=== PATIENT | female | born 1980 | race Caucasian/White ===

== ENCOUNTER → 2018-02-03 10:30 | Outpatient (CLI) | payer OTHER, SELFPAY ==
[2018-02-06 10:20] LABS: HPV Reflexed? NOT INDICATED
== END ==
PROVIDERS: Visit Provider Obstetrics & Gynecology
DX: Z12.4 Encounter for screening for malignant neoplasm of cervix (principal)
CPT/HCPCS: 88175; G0145

== ENCOUNTER → 2020-02-02 | Outpatient (CLI) | payer OTHER, SELFPAY ==
[2020-02-08 09:20] LABS: HPV Reflexed? NOT INDICATED
== END | disposition home or self-care (01) ==
LOC: LABSPEC 14:22
PROVIDERS: Visit Provider Obstetrics & Gynecology
DX: Z12.4 Encounter for screening for malignant neoplasm of cervix (principal)
CPT/HCPCS: 88175; G0145

== ENCOUNTER → 2025-02-21 | Outpatient (CLI) | payer OTHER, SELFPAY ==
--- NOTE | 2025-02-21 14:23 | BI_ITS ---
EXAM: SCRN MAMM (CAD)W/KIANA BILAT DATE: 02/21/2025 CLINICAL HISTORY: F, Age 44 y/o , SCREENING TECHNIQUE: Procedure Code: [id number] Modality: MG Procedure: SCRN MAMM (CAD)W/KIANA BILAT COMPARISON: Prior exam(s) were compared FINDINGS: TISSUE DENSITY: There are scattered areas of fibroglandular density. Bilateral Breast Mammographic Findings: No suspicious masses, calcifications or other abnormalities are identified. BI/SCRN MAMM (CAD)W/KIANA BILAT IMPRESSION: No mammographic evidence of malignancy in either breast. OVERALL FINAL ASSESSMENT BI-RADS 1: NEGATIVE. RECOMMENDATION: Routine annual follow-up in 1 Year Additional Recommendation none A letter with findings and recommendations will be mailed to the patient. Reading Location: [id number]
--- OUTSIDE RECORDS SUMMARY | 2025-02-21 14:58 | XMS RPT_ITS | CCD ---
Author Organization [facility] CliniSyvt Care Team Providers Care Toll Repairer Central Office Name Role Phone RADHA MAY Admitting Unavailable YADIRA RADHA Attending Unavailable YADIRA RADHA Primary Care Unavailable NUZHAT BARRIOS MD Consulting Unavailable PROVIDER, UNKNOWN Consulting Unavailable PROVIDER, UNKNOWN Consulting Unavailable PROVIDER, UNKNOWN Consulting Unavailable DAY KRAUSE Admitting Unavailable TIANNA KRAUSEA Attending Unavailable NELIDA, DAY Primary Care Unavailable NUZHAT BARRIOS MD Consulting Unavailable PROVIDER, UNKNOWN Consulting Unavailable PROVIDER, UNKNOWN Consulting Unavailable PROVIDER, UNKNOWN Consulting Unavailable SORENSEN PAC~[id number], SROENSEN DIEGO A Attending Unavailable SORENSEN PAC~[id number], SORENSEN DIEGO A Admitting Unavailable NELIDA SUPERVISOR ALUM PLANT-C, DAY K Consulting Unavailable NELIDA SUPERVISOR [employer]UM [employer]-C~[id number], NELIDA DAY K Primary Car e Unavailable NELIDA SUPERVISOR [employer]UM [employer]-C, DAY K Consulting Unavailable SORENSEN PAC, DIEGO A Consulting Unavailable SORENSEN PAC~[id number], SORENSEN DIEGO A Admitting Unavailable SORENSEN PAC~[id number], SORENSEN DIEGO A Attending Unavailable NELIDA SUPERVISOR [employer]UM PL[employer]-C~[id number], NELIDA DAY K Primary Car e Unavailable SORENSEN PAC, DIEGO A Consulting Unavailable NELIDA SUPERVISOR [employer]UM PLANT-C, DAY K Consulting Unavailable NELIDA SUPERVISOR [employer]UM [employer]-C, DAY K Consulting Unavailable JUAN CARLOS DO, DORINDA T Consulting Unavailable JUAN CARLOS DO, DORINDA T Consulting Unavailable SORENSEN PAC, DIEGO A Consulting Unavailable SORENSEN PAC~[id number], SORENSEN DIEGO A Admitting Unavailable SORENSEN PAC~[id number], SORENSEN DIEGO A Attending Unavailable NELIDA SUPERVISOR [employer]UM [employer]-C~[id number], NELIDA DAY K Primary Car e Unavailable SORENSEN PAC, DIEGO A Consulting Unavailable NELIDA SUPERVISOR [employer]UM [employer]-C, DAY K Consulting Unavailable NELIDA SUPERVISOR [employer]UM [employer]-C, DAY K Consulting Unavailable ISIDRO DO, INGA Consulting Unavailable ISIDRO DO, INGA Consulting Unavailable APARNA DO~[id number], APARNA Campos Admitting Unavailable WHEELER PAC, JOANNE Ambrocio Consulting Unavailable NELIDA SUPERVISOR [employer]-C~[id number], NELIDA Auguste Primary Car e Unavailable APARNA DO~[id number], APARNA HANSEN J Attending Unavailable WHEELER PAC, JOANNE Ambrocio Consulting Unavailable ELLA PÉREZ, MOR Consulting Unavailable ELLA PÉREZ, MOR Consulting Unavailable NELIDA SUPERVISOR [employer]-C, DAY Auguste Consulting Unavailable NELIDA SUPERVISOR [employer]-C, DAY Auguste Consulting Unavailable APARNA DOJADE Consulting Unavailable APARNA DO, JADE J Consulting Unavailable MARLEY PÉREZ, YONNY Song Consulting Unavailable MARLEY PÉREZ~[id number], MARLEY Song Admitting Unavailable MARLEY PÉREZ~[id number], MARLEY Song Attending Unavailable NELIDA SUPERVISOR [employer]-C~[id number], NELIDA WYNNA K Primary Car e Unavailable MARLEY PÉREZ, YONNY Song Consulting Unavailable CHRISSY PÉREZ, OSWALDO Pineda Consulting Unavailsukumar LOWE MD, OSWALDO Pineda Consulting UnavailDAY Wolff Consulting Unavailable NELIDA SUPERVISOR [employer]-C, DAY Auguste Consulting Unavailable SORENSEN PAC, DIEGO A Consulting Unavailable SORENSEN PAC~[id number], SORENSEN DIEGO A Attending Unavailable SORENSEN PAC~[id number], SORENSEN DIEGO A Admitting Unavailable NELIDA SUPERVISOR [employer]-C~[id number], NELIDA WYNNA K Primary Car e Unavailable SORENSEN PAC, DIEGO A Consulting Unavailable NONE, NONE Consulting Unavailable NURSEREFERRAL, NURSEREFERRAL Consulting Tamy vailable TIANNA KRAUSEA K Admitting Unavailable DAY KRAUSE K Attending Unavailable TIANNA KRAUSEA K Consulting Unavailable NELIDA SUPERVISOR [employer]-C~[id number], NELIDA WYNNA K Primary Car e Unavailable NELIDA SUPERVISOR [employer], DAY K Consulting Unavailable NONE, NONE Consulting Unavailable NURSEREFERRAL, NURSEREFERRAL Consulting Tamy vailable SANKET PÉREZ~[id number], SANKET Leon Admitting Unavailable SANKET PÉREZ~[id number], SANKET Leon Attending Unavailable NELIDA SUPERVISOR [employer]-C~[id number], NELIDA WYNNA K Primary Car e Unavailable JANET SANTIAGO CRNA Consulting UnavailJANET Chaidez CRNA Consulting UnavailJOANNE Connor MD Consulting Unavailable JOANNE COLES MD Consulting Unavailable LORNA PÉREZ, TORI Mattson Consulting Unavailable LORNA PÉREZ, TORI Mattson Consulting Unavailable HUMBERTO DATA TYPIST, SACHIN Sprague Consulting Unavailabl e HUMBERTO DATA TYPIST, SACHIN N Consulting Unavailabl e NELIDA SUPERVISOR [employer], DAY K Consulting Unavailable NELIDA SUPERVISOR [employer]-C, DAY K Consulting Unavailable MILLY PÉREZ, REZA Consulting Unavailable MILLY PÉREZ, REZA Consulting Unavailable WALLY DIANE MD Consulting Unavailable NELIDA SUPERVISOR [employer]-C~[id number], NELIDA DAY K Admitting Unavailable NELIDA SUPERVISOR [employer]-C~[id number], NELIDA DAY K Attending Unavailable NELIDA SUPERVISOR [employer]-C~[id number], NELIDA DAY K Primary Car e Unavailable WALLY DIANE MD Consulting Unavailable NELIDA SUPERVISOR [employer]-C, DAY K Consulting Unavailable NELIDA SUPERVISOR [employer]UM [employer]-C, DAY K Consulting Unavailable SORENSEN PAC, DIEGO A Consulting Unavailable SORENSEN PAC~[id number], SORENSEN DIEGO A Attending Unavailable SORENSEN PAC~[id number], SORENSEN DIEGO A Admitting Unavailable NELIDA SUPERVISOR [employer]-C~[id number], NELIDA DAY K Primary Car e Unavailable SORENSEN PAC, DIEGO A Consulting Unavailable REMEDIOS ROBERTS MD Consulting Unavailable REMEDIOS ROBERTS MD Consulting Unavailable NELIDA SUPERVISOR [employer]-C, DAY K Consulting Unavailable NELIDA SUPERVISOR [employer]-C, DAY K Consulting Unavailable SORENSEN PAC~[id number], SORENSEN DIEGO A Attending Unavailable SORENSEN PAC~[id number], SORENSEN DIEGO A Admitting Unavailable SORENSEN PAC, DIEGO A Consulting Unavailable NELIDA SUPERVISOR [employer]-C~[id number], NELIDA DAY K Primary Car e Unavailable SORENSEN PAC, DIEGO A Consulting Unavailable REMEDIOS ROBERTS MD Consulting Unavailable REMEDIOS ROBERTS MD Consulting Unavailable NELIDA SUPERVISOR [employer]UM [employer]-C, DAY K Consulting Unavailable NELIDA SUPERVISOR [employer]UM [employer]-C, DAY K Consulting Unavailable SORENSEN PAC~[id number], SORENSEN DIEGO A Attending Unavailable SORENSEN PAC~[id number], SORENSEN DIEGO A Admitting Unavailable SORENSEN PAC, DIEGO A Consulting Unavailable NELIDA SUPERVISOR [employer]-C~[id number], NELIDA DAY K Primary Car e Unavailable SORENSEN PAC, DIEGO A Consulting Unavailable REMEDIOS ROBERTS MD Consulting Unavailable REMEDIOS ROBERTS MD Consulting Unavailable NELIDA SUPERVISOR ALUM PL[employer]-C, DAY K Consulting Unavailable NELIDA SUPERVISOR [employer]UM [employer]-C, DAY K Consulting Unavailable SORENSEN PAC, DIEGO A Consulting Unavailable SORENSEN PAC~[id number], SORENSEN DIEGO A Admitting Unavailable SORENSEN PAC~[id number], SORENSEN DIEGO A Attending Unavailable NELIDA SUPERVISOR [employer]-C~[id number], NELIDA DAY K Primary Car e Unavailable SORENSEN PAC, DIEGO A Consulting Unavailable REMEDIOS ROBERTS MD Consulting Unavailable REMEDIOS ROBERTS MD Consulting Unavailable NELIDA LEMA-C, DAY Auguste Consulting Unavailable NELIDA LEMA-C, DAY Auguste Consulting Unavailable Day Krause NP Referring Unavailable Day Krause NP Attending Unavailable Nelida LEMA, Day Primary Care Unavailable Allergies Allergy Classification Reported Allergen(s) Allergy Type Date of Onset Reaction(s) Facility (1 source) Erythromycin Drug Allergy [facility] Repository (1 source) Naproxen Drug Allergy [facility] (1 source) Penicillin Drug Allergy [facility] (1 source) Penicillins Drug allergy (disorder) [facility] (1 source) Sulfonamides (Antibiotic) Drug allergy (disorder) [facility] (1 source) UNCHECKED ALLERGY CODE - OTHER - See chart; Translations: [UNCHECKED ALLERGY CODE - OTHER - See chart] Propensity to adverse reactions (disorder) [facility] (1 source) Ciprofloxacin Drug Allergy [facility] Repository (1 source) Penicillin Drug Allergy [facility] Repository (1 source) Sulfonamides (Antibiotic) Drug allergy (disorder) [facility] Repository (1 source) WASP VENOM PROTEIN Drug Allergy [facility] Repository Problems Problem Classification Problem Date Documented Da te Episodic/Chronic Abdominal pain (2 sources) Unspecified abdominal pain; Translations: [UNSPECIFIED ABDOMINAL PAIN] Onset: 11-09-2024 Episodic Calculus of urinary tract (6 sources) Calculus of kidney; Translations: [Calculus of ureter] Onset: 09-22-2024 Episodic Deficiency and other anemia (1 source) Other hemoglobinopathies; 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-2024 Chronic Disorders of lipid metabolism (1 source) Hyperlipidemia, unspecified; Translations: [HYPERLIPIDEMIA UNSPECIFIED] Onset: 03-05-2024 Chronic Other nutritional; endocrine; and metabolic disorders (2 sources) Morbid (severe) obesity due to excess calories; Translations: [Morbid (severe) obesity due to excess calories] Onset: 02-19-2023 Chronic Other screening for suspected conditions (not mental disorders or infectious disease) (7 sources) Encounter for screening for diabetes mellitus; Translations: [Encounter for screening mammogram for malignant neoplasm of breast] Onset: 02-13-2024 Episodic Sprains and strains (1 source) Strain of muscle, fascia and tendon of lower back, initial encounter; Translations: [STRAIN MUSC FASC TENDON LW BACK INT] Onset: 11-12-2024 Episodic Results Test Name Value Interpretation Reference Range Facility ABDOMEN FLATon 11-09-2024 ABDOMEN FLAT EXAMINATION: ABDOMEN FLAT, 11/08/2024 4:16 PM EDT HISTORY: Kidney stone, right flank pain. COMPARISON: 09/22/2024. TECHNIQUE: Abdominal x-ray: Two views. FINDINGS: No convincing nephrolithiasis. Numerous pelvic calcifications remain bilaterally. Majority phlebolithic although 0.4 cm distal right ureterolithiasis again not excluded. Bowel pattern nonobstructive. Acute osseous pathology is not seen. Regional soft tissues normal. IMPRESSION: 1. No convincing nephrolithiasis. 2. Stable numerous additional pelvic calcifications, majority phlebolithic. 0.4 cm distal right ureterolithiasis is not excluded. 3. Nonobstructive bowel pattern. Normal [facility] CBC W Auto Differential pane l (Bld)on 11-09-2024 Basophils (Bld) [#/Vol] 0.03 10*3/uL Normal <=0.70 [facility] Comment on above: Performed By: #### 5 7021-8 ####[place] [address] [address] Director - My[facility]naHilton Head HospitalAURELIA [id number] Basophils/100 WBC (Bld) 0.4 % Normal <=2.0 [facility] Comment on above: Performed By: #### 5 7021-8 ####[facility] Director - MyrnaHilton Head HospitalAURELIA [id number] Eosinophils (Bld) [#/Vol] 0.16 10*3/uL Normal <=0.70 [facility] Comment on above: Performed By: #### 5 7021-8 ####[place] [address] Director - [facility] [id number] Eosinophils/100 WBC (Bld) 2.0 % Normal <=10.0 [facility] Comment on above: Performed By: #### 5 7021-8 ####[address], [place] [address] Director - Myrna Renee [id number] Erythrocyte distribution width (RBC) [Entitic vol] 45.6 fL Normal 36.4-46.3 [facility] Comment on above: Performed By: #### 5 7021-8 ####[facility] Director - Myrna Renee [id number] Hematocrit (Bld) [Volume fraction] 47.6 % High 37.0-47.0 [facility] Comment on above: Performed By: #### 5 7021-8 ####[place] [address] Director - Myrna Renee [id number] Hemoglobin (Bld) [Mass/Vol] 16.0 g/dL Normal 12.0-16.0 [facility] Comment on above: Performed By: #### 5 7021-8 ####[place] [address] Director - Myrna Renee [id number] Immature granulocytes (Bld) [#/Vol] 0.03 10*3/uL Normal <=0.10 [facility] Comment on above: Performed By: #### 5 7021-8 ####[facility] Director - Myrna Renee [id number] Immature granulocytes/100 WBC (Bld) 0.40 % Normal <=1.50 [facility] Comment on above: Performed By: #### 5 7021-8 ####[facility] Director - Myrna Renee [id number] Lymphocytes (Bld) [#/Vol] 2.34 10*3/uL Normal 1.20-3.40 [facility] Comment on above: Performed By: #### 5 7021-8 ####[place] [address] Director - Myrna Renee [id number] Lymphocytes/100 WBC (Bld) 29.4 % Normal 20.0-40.0 [facility] Comment on above: Performed By: #### 5 7021-8 ####[facility], [place] [address] Director - Myrna Renee [id number] MCH (RBC) [Entitic mass] 30.2 pg Normal 27.0-31.0 [facility] Comment on above: Performed By: #### 5 7021-8 ####[facility] Director - Myrna Renee [id number] MCHC (RBC) [Mass/Vol] 33.6 g/dL Normal 32.0-36.0 [facility] Comment on above: Performed By: #### 5 7021-8 ####[place] [address] Director - Myrna BootheCLIA [id number] MCV (RBC) [Entitic vol] 89.8 fL Normal 80.0-100.0 [facility] Comment on above: Performed By: #### 5 7021-8 ####[place] [address] Director - Myrnaregina BootheCLIA [id number] Monocytes (Bld) [#/Vol] 0.39 10*3/uL Normal 0.10-0.60 [facility] Comment on above: Performed By: #### 5 7021-8 ####[facility] Director - Myrnaregina BootheCLIA [id number] Monocytes/100 WBC (Bld) 4.9 % Normal <=8.0 [facility] Comment on above: Performed By: #### 5 7021-8 ####[facility] Director - Myrnaregina BootheCLIA [id number] Neutrophils (Bld) [#/Vol] 5.00 10*3/uL Normal 1.40-6.50 [facility] Comment on above: Performed By: #### 5 7021-8 ####[place] [address] Director - Myrna Renee [id number] Neutrophils/100 WBC (Bld) 62.9 % Normal 50.0-70.0 [facility] Comment on above: Performed By: #### 5 7021-8 ####[place] [address] Director - Myrna Renee [id number] Nucleated RBC (Bld) [#/Vol] 0.00 10*3/uL Normal <=0.10 [facility] Comment on above: Performed By: #### 5 7021-8 ####[place] [address] Director - Myrnaregina BootheCLIA [id number] Platelet mean volume (Bld) [Entitic vol] 10.1 fL Normal 9.0-13.0 [facility] Comment on above: Performed By: #### 5 7021-8 ####[facility] Director - Myrnaregina Renee [id number] Platelets (Bld) [#/Vol] 267 10*3/uL Normal 130-400 [facility] Comment on above: Performed By: #### 5 7021-8 ####[place] [address] Director - Myrnaregina BootheCLIA [id number] RBC (Bld) [#/Vol] 5.30 10*6/uL Normal 4.00-6.30 [facility] Comment on above: Performed By: #### 5 7021-8 ####[place] [address] Director - Myrnaregina BootheCLIA [id number] WBC (Bld) [#/Vol] 7.95 10*3/uL Normal 4.80-10.80 [facility] Comment on above: Performed By: #### 5 7021-8 ####[facility], [place] [address] Director - Myrna Renee [id number] CT ABDOMEN AND PELVIS WITHOU T CONTRASTon 11-09-2024 CT ABDOMEN AND PELVIS WITHOUT CONTRAST EXAMINATION: CT ABDOMEN AND PELVIS WITHOUT CONTRAST, 11/09/2024, 1:38 PM EDT. HISTORY: Right flank pain. COMPARISON: CT imaging 06/02/2024, 04/16/2024, abdomen x-ray 11/08/2024. TECHNIQUE: CT scan of the abdomen and pelvis was performed without IV contrast. Axial, sagittal and coronal reconstructions. CT dose reduction technique was used, including Automated Exposure Control. FINDINGS: No urinary tract calculus is identified. There are calcifications in the pelvis that are near but not in either ureter. No bladder stone is currently identified. Where there was echogenic right renal parenchyma on June ultrasonography, there is no anatomical abnormality of the right kidney currently evident on noncontrast imaging. There is a well-circumscribed low density in the anterior dome of the right liver lobe consistent with a probable cyst. No solid-appearing liver lesion is evident. Gallbladder is absent. Pancreas appears normal. Spleen is not enlarged. Adrenal glands are not enlarged. Aorta is normal in caliber. There are small stable reactive size lymph nodes in the mediastinum. Surgical clips are seen at the caudal end of the cecum and an appendix is not currently evident. There is colonic diverticulosis without acute inflammation. The uterus is not abnormally enlarged. There is an air bubble in the endocervical canal of the uterus and there is air in the caudal aspect of the vagina which is not necessarily pathological. No abnormal fluid collection or phlegmon is seen in the pelvis. There is a 22 mm low-density of the left ovary that is possibly a small follicular cyst. Neither ovary looks pathologically enlarged. Lower chest cuts show no pleural fluid collection. There is no evidence of free intraperitoneal air. IMPRESSION: 1. No urinary tract calculus or hydronephrosis identified. 2. No acute process identified in the abdomen or pelvis by noncontrast imaging. Normal [facility] Comprehensive metabolic 2000 panelon 11-09-2024 Albumin [Mass/Vol] 3.8 g/dL Normal 3.4-5.0 [facility] Comment on above: Performed By: #### 2 4323-8, LIPASE #### [facility] [address] [place] [address] Filter Tip Inspector - Myrna Boothe CLIA [id number] ALP [Catalytic activity/Vol] 78 U/L Normal 50-136 [facility] Comment on above: Performed By: #### 2 4323-8, LIPASE #### [place] [address] [place] [address] Filter Tip Inspector - Myrna Boothe CLIA [id number] ALT [Catalytic activity/Vol] 13 U/L Low 14-59 [facility] Comment on above: Performed By: #### 2 4323-8, LIPASE #### [address] [place] [address] Filter Tip Inspector - Myrna Boothe CLIA [id number] Anion gap [Moles/Vol] 8.0 mmol/L Normal <=15.0 [facility] Comment on above: Performed By: #### 2 4323-8, LIPASE #### [place] [address] [facility]. [place] [address] Filter Tip Inspector - Myrna Boothe CLIA [id number] AST [Catalytic activity/Vol] 15 U/L Normal 15-37 [facility] Comment on above: Performed By: #### 2 4323-8, LIPASE #### [place] [address] [facility]. [place] [address] Filter Tip Inspector - Myrnaregina Boothe CLIA [id number] Bilirubin [Mass/Vol] 0.7 mg/dL Normal 0.2-1.0 [facility] Comment on above: Performed By: #### 2 4323-8, LIPASE #### [place] [address] [facility]. [place] [address] Filter Tip Inspector - Myrnaregina Boothe CLIA [id number] Calcium [Mass/Vol] 9.8 mg/dL Normal 8.5-10.1 [facility] Comment on above: Performed By: #### 2 4323-8, LIPASE #### [facility] [address] [place] [address] Filter Tip Inspector - Myrna Ariasrell JIMIA [id number] Chloride [Moles/Vol] 105 mmol/L Normal 98-107 [facility] Comment on above: Performed By: #### 2 4323-8, LIPASE #### [facility] [address] [place] [address] Filter Tip Inspector - Myrna Boothe CLIA [id number] CO2 [Moles/Vol] 26 mmol/L Normal 21-32 [facility] Comment on above: Performed By: #### 2 4323-8, LIPASE #### [facility] [address] [place] [address] Filter Tip Inspector - Myrna Waverly JIMIA [id number] Creatinine [Mass/Vol] 0.81 mg/dL Normal 0.51-0.95 [facility] Comment on above: Performed By: #### 2 4323-8, LIPASE #### [facility] [address] [place] [address] Filter Tip Inspector - Myrna FERNANDEZIA [id number] GFR/1.73 sq M.predicted MDRD (S/P/Bld) [Vol rate/Area] mL/min/{1.73_m2} Normal >=60 [facility] Comment on above: Performed By: #### 2 4323-8, LIPASE #### [facility] [address] [place] [address] Filter Tip Inspector - Myrna Ariasrell JIMIA [id number] Glucose [Mass/Vol] 91 mg/dL Normal 74-106 [facility] Comment on above: Performed By: #### 2 4323-8, LIPASE #### [facility] [address] [place] [address] Filter Tip Inspector - Myrna Ariasrell DORIE [id number] HGFR GLOMERULAR FILTRATIO N RATE INTERPRETATION~The eGFR is calculated using the MDRD equation.~This equation has been validated in patients with chronic kidney disease;~however, it underestimates the GFR in healthy patients with GFR's over 60 mL/min.~The equation is not valid in children under the age of 18.~NOTE: Criteria for Chronic Kidney Disease:~ ~1. Kidney damage for at least three months, as defined~by structural or functional abnormalities of the kidney,~with or without decreased glomerular filtration rate, manifested by either:~* Pathological abnormalities or~* Markers of Kidney damage, including abnormalities in~the composition of the blood or urine or abnormalities in imaging tests.~ ~2. GFR <60 mL/min/1.73 m squared for at least three months, with or without kidney damage.~ Normal [facility] Comment on above: Performed By: #### 2 4323-8, LIPASE #### [facility] [address] [place] [address] Filter Tip Inspector [facility] CLIA [id number] Potassium [Moles/Vol] 4.3 mmol/L Normal 3.5-5.1 [facility] Comment on above: Performed By: #### 2 4323-8, LIPASE #### [address] [place] [address] Filter Tip Inspector [facility] CLIA [id number] Protein [Mass/Vol] 7.1 g/dL Normal 6.4-8.2 [facility] Comment on above: Performed By: #### 2 4323-8, LIPASE #### [facility] [address] [place] [address] Filter Tip Inspector - Myrna Boothe CLIA [id number] Sodium [Moles/Vol] 139 mmol/L Normal 136-145 [facility] Comment on above: Performed By: #### 2 4323-8, LIPASE #### [facility] [address] [place] [address] Filter Tip Inspector [facility] CLIA [id number] Urea nitrogen [Mass/Vol] 8 mg/dL Normal 7-17 [facility] Comment on above: Performed By: #### 2 4323-8, LIPASE #### [facility] [address] [place] [address] Filter Tip Inspector - [employer] CLIA [id number] LIPASEon 11-09-2024 LIPASES 32 U/L Normal 13-75 [facility] Comment on above: Performed By: #### 2 4323-8, LIPASE #### [facility] [address] [place] [address] Filter Tip Inspector - Myrna OSHEA [id number] URINALYSIS with reflex to CU LTUREon 11-09-2024 Bacteria LM Ql (Urine sed) Normal TRACE [facility] Comment on above: Performed By: #### U AR ####[facility] [address]Medical Director - Myrna Renee [id number] for [facility] [place] [address] Bilirubin (U) [Mass/Vol] Negative Normal NEGATIVE [facility] Comment on above: Performed By: #### U AR ####[facility] [address]Medical Director - Myrna Renee [id number] for [facility] [place] [address] Clarity (U) CLEAR Normal CLEAR [facility] Comment on above: Performed By: #### U AR ####[facility] Director - Myrna Renee [id number] for [place] [address] [place], [place] [address] Color (U) YELLOW Normal YELLOW [facility] Comment on above: Performed By: #### U AR ####[facility] [address]Medical Director - Myrna Renee [id number] for [place] [address] [address] Glucose Test strip (U) [Mass/Vol] Negative Normal NEGATIVE [facility] Comment on above: Performed By: #### U AR ####[facility] [address]Medical Director - Myrna Renee [id number] for [place] [address] [address] [place], [place] [address] HMICRO MICROSCOPIC Normal [facility] Comment on above: Performed By: #### U AR ####[facility], [place] [address]Gnqokky Director - Myrna Renee [id number] for [facility] [place], [place] [address] Hyaline casts (Urine sed) [#/Area] Normal 0-8 [facility] Comment on above: Performed By: #### U AR ####[facility], [place] [address]Cfeknpy Director - Myrna AriasAustin Hospital and ClinicAURELIA [id number] for [place] [address] [place], [place] [address] Ketones (U) [Mass/Vol] Negative Normal NEGATIVE [facility] Comment on above: Performed By: #### U AR ####[place] [address], [place] [address]Jcciyyn Director - [facility] HugoAustin Hospital and ClinicAURELIA [id number] for [place] [address] [place], [place] [address] Leukocyte esterase Qn (U) Negative Normal TRACE [facility] Comment on above: Performed By: #### U AR ####[place] [address], [place] [address]Qwccsqu Director - Myrna AriasAustin Hospital and ClinicAURELIA [id number] for [place] [address] [place], [place] [address] Nitrite Ql (U) Negative Normal NEGATIVE [facility] Comment on above: Performed By: #### U AR ####[place] [address] [address]Medical Director - [facility] [id number] for [place] [address] [place], [place] [address] pH (U) 6.0 [pH] Normal 5.5-7.5 [facility] Comment on above: Performed By: #### U AR ####[place] [address], [place] [address]Ocxdhzj Director - Myrna Renee [id number] for [place] [address] [address] [place], [place] [address] Protein (U) [Mass/Vol] Negative Normal NEGATIVE [facility] Comment on above: Performed By: #### U AR ####[place] [address], [place] [address]Pwvomut Director - Myrna Renee [id number] for [place] [address] [address] [place], [place] [address] RBC (U) [#/Vol] Negative Normal NEGATIVE [facility] Comment on above: Performed By: #### U AR ####[place] [address], [place] [address]Xfdfhns Director - Myrna Renee [id number] for [place] [address] [place], [place] [address] RBC LM.HPF (Urine sed) [#/Area] Normal 0-4 [facility] Comment on above: Performed By: #### U AR ####[place] [address], [place] [address]Xzhcjan Director - Myrna Renee [id number] for [place] [address] [place], [place] [address] Specific gravity (U) [Rel density] 1.004 Low 1.010-1.035 [facility] Comment on above: Performed By: #### U AR ####[place] [address], [place] [address]Sojbelf Director - Myrna Renee [id number] for [place] [address] [place], [place] [address] SQUAMOUS EPITHELIALS Normal 0-5 [facility] Comment on above: Performed By: #### U AR ####[place] [address], [place] [address]Ewimqar Director - Myrna Renee [id number] for [place] [address] [place], [place] [address] Urobilinogen Qn (U) 0.2 {Paulina'U}/dL Normal <=1.0 [facility] Comment on above: Performed By: #### U AR ####[place] [address], [place] [address]Qlmxzfy Director - Myrna Renee [id number] for [address] [address] WBC LM.HPF (Urine sed) [#/Area] Normal 0-5 [facility] Comment on above: Performed By: #### U AR ####[place] [address], [place] [address]Tuppndz Director - Myrna WaverlyDORIE [id number] for [address] [address] ABDOMEN FLATon 09-23-2024 ABDOMEN FLAT EXAMINATION: ABDOMEN FLAT, 09/22/2024 12:09 PM EDT HISTORY: Ureteric stone. COMPARISON: Renal sonogram 06/18/2024, abdomen 06/10/2024. TECHNIQUE: Abdominal x-ray: Two views. FINDINGS: Previous right lower pole nephrolithiasis is not seen with confidence. 0.4 cm calcification overlies the right side of the pelvis, not seen with confidence previously. This may represent right ureterolithiasis with propagation from previous exam. Additional nephrolithiasis is not evident. Stool and gas obscure detail. Stable additional numerous pelvic calcifications, majority phlebolithic. Bowel pattern nonobstructive. Acute osseous pathology is not seen. Regional soft tissues normal. IMPRESSION: 1. Previous lower pole right nephrolithiasis is no longer evident. New right-sided pelvic calcification, possibly distal right ureterolithiasis with propagation of previous nephrolithiasis. 2. Stable numerous additional pelvic calcifications, majority phlebolithic. 3. Nonobstructive bowel pattern. Normal [facility] STONE ANALYSISon 06-25-2024 2,8 Dihydroxyadenine Normal [facility] Comment on above: Performed By: #### S TONE ####Performed for [address] [address] Ammonium Acid Urate Normal [facility] Comment on above: Performed By: #### S TONE ####Performed for [facility] [facility] [place] [address] Bilirubin Normal [facility] Comment on above: Performed By: #### S TONE ####Performed for [facility] [place], [place] [address] CaHP04 (Brushite) Normal [facility] Comment on above: Performed By: #### S TONE ####Performed for [facility] [place], [place] [address] Calcium Bilirubinate Normal [facility] Comment on above: Performed By: #### S TONE ####Performed for [facility], [place] [address] Calcium Carbonate Normal [facility] Comment on above: Performed By: #### S TONE ####Performed for [facility] [place], [place] [address] Calcium Oxalate Dihydrate 80 % Normal [facility] Comment on above: Performed By: #### S TONE ####Performed for [facility], [place] [address] Calcium Oxalate Monohydrate 20 % Normal [facility] Comment on above: Performed By: #### S TONE ####Performed for [facility], [place] [address] Calcium Palmitate Normal [facility] Comment on above: Performed By: #### S TONE ####Performed for [facility], [place] [address] Calcium Phosphate Normal [facility] Comment on above: Performed By: #### S TONE ####Performed for [facility] [place], [place] [address] Calcium Stearate Normal [facility] Comment on above: Performed By: #### S TONE ####Performed for [facility] [place], [place] [address] Carbonate Apatite Normal [facility] Comment on above: Performed By: #### S TONE ####Performed for [facility] [place], [place] [address] Cellular Material Normal [facility] Comment on above: Performed By: #### S TONE ####Performed for [facility] [place], [place] [address] Cholesterol Normal [facility] Comment on above: Performed By: #### S TONE ####Performed for [facility] [place], [place] [address] Color (U) Brown Normal [facility] Comment on above: Performed By: #### S TONE ####Performed for [facility], [place] [address] Comment Normal [facility] Comment on above: Performed By: #### S TONE ####Performed for [facility] [place], [place] [address] Comment: Comment Normal [facility] Comment on above: Result Comment: Phys ician questions regarding Calculi Analysis [facility] at: [phone]. Performed By: #### S TONE ####Performed for [facility], [place] [address] Cystine Normal [facility] Comment on above: Performed By: #### S TONE ####Performed for [facility] [place], [place] [address] Disclaimer: Comment Normal [facility] Comment on above: Result Comment: This test was developed and its performance characteristics determined by [facility]. It has not been cleared or approved by the Food and Drug Administration. Performed By: #### S TONE ####Performed for [facility], [place] [address] Dried Blood Normal [facility] Comment on above: Performed By: #### S TONE ####Performed for [facility], [place] [address] Drug or Metabolite Normal [facility] Comment on above: Performed By: #### S TONE ####Performed for [facility] [place], [place] [address] Hydroxyapatite Normal [facility] Comment on above: Performed By: #### S TONE ####Performed for [place] [address] [place], [place] [address] Mg NH4 PO4 (Struvite) Normal [facility] Comment on above: Performed By: #### S TONE ####Performed for [place] [address] [place], [place] [address] MgHP04 (Newberyite) Normal [facility] Comment on above: Performed By: #### S TONE ####Performed for [address] [address] Other Component (s) Normal [facility] Comment on above: Performed By: #### S TONE ####Performed for [address] [address] Photo Comment Normal [facility] Comment on above: Result Comment: Phot ograph will follow under a separate cover Performed By: #### S TONE ####Performed for [address] [address] Please note: Comment Normal [facility] Comment on above: Result Comment: Calc edouard report will follow via computer, mail or supervisor inspection delivery. Performed By: #### S TONE ####Performed for [address] [address] Size 2x2 Normal [facility] Comment on above: Result Comment: Mult iple pieces received. Dimensions of the largest piece reported. Performed By: #### S TONE ####Performed for [address] [address] Sodium Acid Urate Normal [facility] Comment on above: Performed By: #### S TONE ####Performed for [address] [address] Source Comment Normal [facility] Comment on above: Result Comment: Not provided Performed By: #### S TONE ####Performed for [address] [address] Stone Analysis Comment Normal [facility] Comment on above: Result Comment: Perc entage (Represents the % composition) Performed By: #### S TONE ####Performed for [place] [address] [place], [place] [address] Triamterene Normal [facility] Comment on above: Performed By: #### S TONE ####Performed for [place] [address] [place], [place] [address] Uric Acid Normal [facility] Comment on above: Performed By: #### S TONE ####Performed for [place] [address] [address], [place] [address] Uric Acid Dihydrate Normal [facility] Comment on above: Performed By: #### S TONE ####Performed for [address] [address] Weight 7 mg Normal [facility] Comment on above: Performed By: #### S TONE ####Performed for [address], [place] [address] Xanthine Normal [facility] Comment on above: Performed By: #### S TONE ####Performed for [address] [place], [place] [address] ABDOMEN FLATon 06-11-2024 ABDOMEN FLAT EXAM: ABDOMEN FLAT 06/10/2024 6:29 AM EST: HISTORY: Retrograde pyelography of bilateral renal pelves. COMPARISON: Correlation with the abdominal CT study of 06/02/2024 TECHNIQUE: Supine views of the abdomen and pelvis were obtained. FINDINGS: A rounded, slightly lobulated calcification measuring 3 x 4 mm projects within the lower pole collecting system of the right kidney. It is unclear whether these represents the stone seen in the proximal ureter on the recent CT study. No additional abnormal cavitation is identified in the expected location of either renal collecting system or ureter. The bowel gas pattern is within normal limits. A moderate amount of colonic stool and gas is demonstrated. No extraluminal gas collection is seen, obscuring the kidneys partially. No small bowel distention is seen. Postsurgical changes are seen in the right lower abdomen There are calcified phleboliths throughout the pelvic floor. IMPRESSION: Small (3-4 mm) calcification projecting within the lower pole collecting system of the right kidney, possibly a residual stone. Otherwise negative abdominal radiographs. Normal [facility] URINE QUALITATIVEo n 06-10-2024 HCG ( test) Ql (U) Negative Normal NEGATIVE [facility] Comment on above: Performed By: #### 2 106-3 #### [facility] [address] [place], [place] [address] Filter Tip Inspector - Myrna OSHEA [id number] CT ABDOMEN AND PELVIS WITHOU T CONTRASTon 06-06-2024 CT ABDOMEN AND PELVIS WITHOUT CONTRAST EXAMINATION: CT ABDOMEN AND PELVIS WITHOUT CONTRAST, 06/02/2024 1:30 PM EST HISTORY: Ureteric stone COMPARISON: CT abdomen and pelvis dated 04/16/2024 TECHNIQUE: CT scan of the abdomen and pelvis was performed without IV contrast. CT dose reduction technique was used, including Automated Exposure Control. FINDINGS: Lower thorax: Lung bases are clear. Heart size is normal. GI: 2.3 cm cyst within the right hepatic lobe. The gallbladder is surgically absent. The spleen and pancreas demonstrate a normal noncontrast appearance. The bowel is nonobstructed. No focal wall thickening. Scattered diverticula of the sigmoid colon. No surrounding inflammatory stranding. The appendix is surgically absent. : The adrenal glands are normal. The left kidney is normal. Similar positioning of the 4 mm right proximal ureteral stone. There is no associated hydronephrosis or ureteral dilation. The bladder is well distended without wall thickening. The uterus is present. No adnexal masses. Lymphovascular: Aorta is normal in caliber. No intra-abdominal or lower pelvic lymphadenopathy. Miscellaneous: No pneumoperitoneum or pelvic free fluid. MUSCULOSKELETAL: No acute or aggressive osseous lesions. IMPRESSION: Similar positioning of the 4 mm right proximal ureteral stone without associated hydronephrosis or ureteral dilation. Normal [facility] ABDOMEN FLATon 05-27-2024 ABDOMEN FLAT EXAMINATION: ABDOMEN FLAT, 05/26/2024 10:23 AM EST HISTORY: Ureteric stone. COMPARISON: Abdomen 04/21/2024, CT abdomen and pelvis 04/16/2024. TECHNIQUE: Abdominal x-ray: Two views. FINDINGS: Stable 0.4 cm lower pole right nephrolithiasis. Additional nephrolithiasis is not evident. Stool and gas obscure detail. Stable numerous pelvic calcifications, majority phlebolithic. Bowel pattern nonobstructive. Acute osseous pathology is not seen. Regional soft tissues normal. IMPRESSION: 1. Stable lower pole right nephrolithiasis 2. Stable numerous pelvic calcifications, majority phlebolithic. 3. Nonobstructive bowel pattern. Normal [facility] ABDOMEN FLATon 04-22-2024 ABDOMEN FLAT EXAM: ABDOMEN FLAT HISTORY: Ureteric stone, , , COMPARISON: CT 04/16/2024. FINDINGS: Supine view of the abdomen demonstrates a nonspecific and nonobstructive bowel gas pattern. No pathologic calcifications are identified. No definite free air. Large amount of stool in the rectum and possible impaction. Right upper quadrant clips. IMPRESSION: 1. No radiographically apparent urinary tract calculi. 2. Large amount of stool in the rectum and possible impaction. Normal [facility] Basic metabolic 2000 panelon 04-16-2024 Anion gap [Moles/Vol] 6.0 mmol/L Normal <=15.0 [facility] Comment on above: Performed By: #### 2 1-2, #### [facility] [address] [place] [address] Filter Tip Inspector - Myrna Boothe CLIA [id number] Calcium [Mass/Vol] 9.5 mg/dL Normal 8.5-10.1 [facility] Comment on above: Performed By: #### 2 4320-2, #### [facility] [address] [place] [address] Filter Tip Inspector - Myrna Boothe CLIA [id number] Chloride [Moles/Vol] 109 mmol/L High 98-107 [facility] Comment on above: Performed By: #### 2 4320-2, #### [facility] [address] [place] [address] Filter Tip Inspector - Myrna Boothe CLIA [id number] CO2 [Moles/Vol] 24 mmol/L Normal 21-32 [facility] Comment on above: Performed By: #### 2 4320-2, #### [facility] [address] [place] [address] Filter Tip Inspector - Myrna FERNANDEZIA [id number] Creatinine [Mass/Vol] 0.84 mg/dL Normal 0.51-0.95 [facility] Comment on above: Performed By: #### 2 4320-, #### [facility] [address] [place] [address] Filter Tip Inspector - Myrna OSHEA [id number] GFR/1.73 sq M.predicted MDRD (S/P/Bld) [Vol rate/Area] mL/min/{1.73_m2} Normal >=60 [facility] Comment on above: Performed By: #### 2 4320-06, #### [facility] [address] [place] [address] Filter Tip Inspector - Myrna OSHEA [id number] Glucose [Mass/Vol] 108 mg/dL High 74-106 [facility] Comment on above: Performed By: #### 2 4320-06, #### [facility] [address] [place] [address] Filter Tip Inspector - Myrna OSHEA [id number] HGFR GLOMERULAR FILTRATIO N RATE INTERPRETATION~The eGFR is calculated using the MDRD equation.~This equation has been validated in patients with chronic kidney disease;~however, it underestimates the GFR in healthy patients with GFR's over 60 mL/min.~The equation is not valid in children under the age of 18.~NOTE: Criteria for Chronic Kidney Disease:~ ~1. Kidney damage for at least three months, as defined~by structural or functional abnormalities of the kidney,~with or without decreased glomerular filtration rate, manifested by either:~* Pathological abnormalities or~* Markers of Kidney damage, including abnormalities in~the composition of the blood or urine or abnormalities in imaging tests.~ ~2. GFR <60 mL/min/1.73 m squared for at least three months, with or without kidney damage.~ Normal [facility] Comment on above: Performed By: #### 2 4320-06, #### [facility] [address] [place] [address] Filter Tip Inspector - Myrna OSHEA [id number] Potassium [Moles/Vol] 3.8 mmol/L Normal 3.5-5.1 [facility] Comment on above: Performed By: #### 2 4321-2, 14551-5 #### [facility] [address] [facility]. [place] [address] Filter Tip Inspector - Myrna FERNANDEZIA [id number] Sodium [Moles/Vol] 139 mmol/L Normal 136-145 [facility] Comment on above: Performed By: #### 2 4321-2, 62164-7 #### [address] [place] [address] Filter Tip Inspector - Myrna FERNANDEZIA [id number] Urea nitrogen [Mass/Vol] 14 mg/dL Normal 7-17 [facility] Comment on above: Performed By: #### 2 4321-2, 55992-6 #### [address] [place] [address] Filter Tip Inspector - Myrna FERNANDEZIA [id number] CBC W Auto Differential pane l (Bld)on 04-16-2024 Basophils (Bld) [#/Vol] 0.03 10*3/uL Normal <=0.70 [facility] Comment on above: Performed By: #### 5 7021-8 #### [address] [place] [address] Filter Tip Inspector - Myrna Boothe CLIA [id number] Basophils/100 WBC (Bld) 0.4 % Normal <=2.0 [facility] Comment on above: Performed By: #### 5 7021-8 #### [address] [place] [address] Filter Tip Inspector - Myrna Boothe CLIA [id number] Eosinophils (Bld) [#/Vol] 0.27 10*3/uL Normal <=0.70 [facility] Comment on above: Performed By: #### 5 7021-8 #### [address] [place] [address] Filter Tip Inspector - Myrna Boothe CLIA [id number] Eosinophils/100 WBC (Bld) 3.2 % Normal <=10.0 [facility] Comment on above: Performed By: #### 5 7021-8 #### [facility] [address] [place] [address] Filter Tip Inspector - Myrna OSHEA [id number] Erythrocyte distribution width (RBC) [Entitic vol] 42.0 fL Normal 36.4-46.3 [facility] Comment on above: Performed By: #### 5 7021-8 #### [address] [place] [address] Filter Tip Inspector - Myrna FERNANDEZIA [id number] Hematocrit (Bld) [Volume fraction] 43.4 % Normal 37.0-47.0 [facility] Comment on above: Performed By: #### 5 7021-8 #### [address] [place] [address] Filter Tip Inspector - Myrna OSHEA [id number] Hemoglobin (Bld) [Mass/Vol] 15.2 g/dL Normal 12.0-16.0 [facility] Comment on above: Performed By: #### 5 7021-8 #### [address] [place] [address] Filter Tip Inspector - Myrna OSHEA [id number] Immature granulocytes (Bld) [#/Vol] 0.05 10*3/uL Normal <=0.10 [facility] Comment on above: Performed By: #### 5 7021-8 #### [address] [place] [address] Filter Tip Inspector - Myrna FERNANDEZIA [id number] Immature granulocytes/100 WBC (Bld) 0.60 % Normal <=1.50 [facility] Comment on above: Performed By: #### 5 7021-8 #### [address] [facility] [place] [address] Filter Tip Inspector - Myrna OSHEA [id number] Lymphocytes (Bld) [#/Vol] 3.14 10*3/uL Normal 1.20-3.40 [facility] Comment on above: Performed By: #### 5 7021-8 #### [place] [address] [place] [address] Filter Tip Inspector - Myrna FERNANDEZIA [id number] Lymphocytes/100 WBC (Bld) 36.9 % Normal 20.0-40.0 [facility] Comment on above: Performed By: #### 5 7021-8 #### [facility] [address] [place] [address] Filter Tip Inspector - Myrna FERNANDEZIA [id number] MCH (RBC) [Entitic mass] 30.5 pg Normal 27.0-31.0 [facility] Comment on above: Performed By: #### 5 7021-8 #### [place] [address] [place] [address] Filter Tip Inspector - Myrna OSHEA [id number] MCHC (RBC) [Mass/Vol] 35.0 g/dL Normal 32.0-36.0 [facility] Comment on above: Performed By: #### 5 7021-8 #### [place] [address] [place] [address] Filter Tip Inspector - Myrna FERNANDEZIA [id number] MCV (RBC) [Entitic vol] 87.1 fL Normal 80.0-100.0 [facility] Comment on above: Performed By: #### 5 7021-8 #### [place] [address] [place] [address] Filter Tip Inspector - Myrna FERNANDEZIA [id number] Monocytes (Bld) [#/Vol] 0.56 10*3/uL Normal 0.10-0.60 [facility] Comment on above: Performed By: #### 5 7021-8 #### [facility] [address] [place] [address] Filter Tip Inspector - Myrna FERNANDEZIA [id number] Monocytes/100 WBC (Bld) 6.6 % Normal <=8.0 [facility] Comment on above: Performed By: #### 5 7021-8 #### [place] [address] [place] [address] Filter Tip Inspector - Myrna FERNANDEZIA [id number] Neutrophils (Bld) [#/Vol] 4.46 10*3/uL Normal 1.40-6.50 [facility] Comment on above: Performed By: #### 5 7021-8 #### [facility] [address] [place] [address] Filter Tip Inspector - Myrna FERNANDEZIA [id number] Neutrophils/100 WBC (Bld) 52.3 % Normal 50.0-70.0 [facility] Comment on above: Performed By: #### 5 7021-8 #### [address] [place] [address] Filter Tip Inspector - Myrna FERNANDEZIA [id number] Nucleated RBC (Bld) [#/Vol] 0.00 10*3/uL Normal <=0.10 [facility] Comment on above: Performed By: #### 5 7021-8 #### [address] [place] [address] Filter Tip Inspector - Myrna FERNANDEZIA [id number] Platelet mean volume (Bld) [Entitic vol] 10.5 fL Normal 9.0-13.0 [facility] Comment on above: Performed By: #### 5 7021-8 #### [address] [place] [address] Filter Tip Inspector - Myrna FERNANDEZIA [id number] Platelets (Bld) [#/Vol] 256 10*3/uL Normal 130-400 [facility] Comment on above: Performed By: #### 5 7021-8 #### [address] [place] [address] Filter Tip Inspector - Myrna FERNANDEZIA [id number] RBC (Bld) [#/Vol] 4.98 10*6/uL Normal 4.00-6.30 [facility] Comment on above: Performed By: #### 5 7021-8 #### [address] [place] [address] Filter Tip Inspector - Myrna Boothe CLIA [id number] WBC (Bld) [#/Vol] 8.51 10*3/uL Normal 4.80-10.80 [facility] Comment on above: Performed By: #### 5 7021-8 #### [facility] [address] [place], [place] [address] Filter Tip Inspector - Myrna Boothephilomena OSHEA [id number] CT ABDOMEN AND PELVIS WITHOU T CONTRASTon 04-16-2024 CT ABDOMEN AND PELVIS WITHOUT CONTRAST EXAMINATION: CT ABDOMEN AND PELVIS WITHOUT CONTRAST, 04/16/2024 6:36 AM EST HISTORY: Left flank pain radiating into the left lower quadrant with nausea and vomiting. COMPARISON: None. TECHNIQUE: CT scan of the abdomen and pelvis was performed without IV contrast. CT dose reduction technique was used, including Automated Exposure Control. FINDINGS: There are scattered areas of mild atelectasis in the lung bases. 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 The lung bases are otherwise grossly clear. The visualized heart and great vessels are normal. The liver is normal in size and shows a simple cyst in the dome. The spleen, adrenal glands, and pancreas are normal. Surgical changes of cholecystectomy. The kidneys are symmetric in size and show no calcifications. There is hydronephrosis on the right. The obstruction is caused by a 3.5 mm calcification at the UPJ. No distal ureteral stones are seen. The aorta has a normal course and caliber. The large and small bowel are normal caliber. There are surgical changes of appendectomy. Pelvic organs are grossly normal. Urinary bladder is normal. There is no free air or free fluid and no inflammatory stranding is seen. No suspicious or destructive bone lesions are seen. IMPRESSION: Partially obstructing 3.5 mm calcification at the right UPJ. The rest of the exam is unremarkable. Normal [facility] HCG BLOODon 04-16-2024 HCG.beta subunit Qn 3 m[IU]/mL Normal 1-3 [facility] Comment on above: Performed By: #### 2 4321-2, 72159-0 #### [facility] [address] [place], [place] [address] Filter Tip Inspector - Myrna OSHEA [id number] HCG.beta subunit Qnon 2023 [facility] HCG INTERPRETATION The expected values were calculated non-parametrically and represent the central 95% of the population. When borderline results are encountered, patient samples should be drawn 48 hours later. The concentration of HCG rises rapidly during early . Gestational Age Expected HCG Values 0.2-1 week 5-50 1-2 weeks 50-500 2-3 weeks 100-5000 3-4 weeks 500-10,000 4-5 weeks 1000-50,000 5-6 weeks 10,000-100,000 6-8 weeks 15,000-200,000 2-3 months 10,000-100,000 Normal [facility] Comment on above: Performed By: #### 2 4321-2, 76474-1 #### [facility] [address] [place] [address] Filter Tip Inspector - Myrna OSHEA [id number] URINALYSIS with reflex to CU LTUREon 04-16-2024 Bacteria LM Ql (Urine sed) Negative Normal TRACE [facility] Comment on above: Performed By: #### U AR #### [facility] [address] [place] [address] Filter Tip Inspector - Myrna OSHEA [id number] Bilirubin (U) [Mass/Vol] Negative Normal NEGATIVE [facility] Comment on above: Performed By: #### U AR #### [facility] [address] [place] [address] Filter Tip Inspector - Myrna OSHEA [id number] Clarity (U) CLOUDY Abnormal CLEAR [facility] Comment on above: Performed By: #### U AR #### [facility] [address] [place] [address] Filter Tip Inspector - Myrna OSHEA [id number] Color (U) YELLOW Normal YELLOW [facility] Comment on above: Performed By: #### U AR #### [facility] [address] [place] [address] Filter Tip Inspector - Myrna Tl OSHEA [id number] Glucose Test strip (U) [Mass/Vol] Negative Normal NEGATIVE [facility] Comment on above: Performed By: #### U AR #### [facility] [address] [place] [address] Filter Tip Inspector - Myrna OSHEA [id number] HMICRO MICROSCOPIC Normal [facility] Comment on above: Performed By: #### U AR #### [place] [address] Filter Tip Inspector - Myrna OSHEA [id number] Hyaline casts (Urine sed) [#/Area] 0-8 Normal 0-8 [facility] Comment on above: Performed By: #### U AR #### [place] [address] Filter Tip Inspector - Myrna OSHEA [id number] Ketones (U) [Mass/Vol] Negative Normal NEGATIVE [facility] Comment on above: Performed By: #### U AR #### [place] [address] Filter Tip Inspector - Myrna OSHEA [id number] Leukocyte esterase Qn (U) 1+ Abnormal TRACE [facility] Comment on above: Performed By: #### U AR #### [place] [address] Filter Tip Inspector - Myrna OSHEA [id number] Nitrite Ql (U) Negative Normal NEGATIVE [facility] Comment on above: Performed By: #### U AR #### [place] [address] Filter Tip Inspector - Myrna FERNANDEZIA [id number] pH (U) 5.5 [pH] Normal 5.5-7.5 [facility] Comment on above: Performed By: #### U AR #### [place] [address] Filter Tip Inspector - Myrna FERNANDEZIA [id number] Protein (U) [Mass/Vol] TRACE Abnormal NEGATIVE [facility] Comment on above: Performed By: #### U AR #### [place] [address] Filter Tip Inspector - Myrna FERNANDEZIA [id number] RBC (U) [#/Vol] 3+ Abnormal NEGATIVE [facility] Comment on above: Performed By: #### U AR #### [facility] [address] [place] [address] Filter Tip Inspector - Myrna OSHEA [id number] RBC LM.HPF (Urine sed) [#/Area] 50-100 Abnormal 0-4 [facility] Comment on above: Performed By: #### U AR #### [place] [address] [place] [address] Filter Tip Inspector - Myrna OSHEA [id number] Specific gravity (U) [Rel density] 1.019 Normal 1.010-1.035 [facility] Comment on above: Performed By: #### U AR #### [address] [place] [address] Filter Tip Inspector - Myrna OSHEA [id number] SQUAMOUS EPITHELIALS TNTC Abnormal 0-5 [facility] Comment on above: Performed By: #### U AR #### [place] [address] [place] [address] Filter Tip Inspector - Myrna OSHEA [id number] Urobilinogen Qn (U) 0.2 {Paulina'U}/dL Normal <=1.0 [facility] Comment on above: Performed By: #### U AR #### [place] [address] [place] [address] Filter Tip Inspector - Myrna OSHEA [id number] WBC LM.HPF (Urine sed) [#/Area] 6-10 Abnormal 0-5 [facility] Comment on above: Performed By: #### U AR #### [place] [address] [place] [address] Filter Tip Inspector - Myrna OSHEA [id number] CBC W Auto Differential pane l (Bld)on 03-04-2024 Basophils (Bld) [#/Vol] 0.03 10*3/uL Normal <=0.70 [facility] Comment on above: Performed By: #### 5 7021-8 ####[address] [address]Medical Director - Myrnaregina ShaikhIA [id number] Basophils/100 WBC (Bld) 0.4 % Normal <=2.0 [facility] Comment on above: Performed By: #### 5 7021-8 ####[facility] Director - Myrnaregina BootheCLIA [id number] Eosinophils (Bld) [#/Vol] 0.15 10*3/uL Normal <=0.70 [facility] Comment on above: Performed By: #### 5 7021-8 ####[facility] Director - Myrna ShaikhIA [id number] Eosinophils/100 WBC (Bld) 1.8 % Normal <=10.0 [facility] Comment on above: Performed By: #### 5 7021-8 ####[address] Director - Myrnaregina BootheCLIA [id number] Erythrocyte distribution width (RBC) [Entitic vol] 45.3 fL Normal 36.4-46.3 [facility] Comment on above: Performed By: #### 5 7021-8 ####[facility] Director - Myrnaregina BootheCLIA [id number] Hematocrit (Bld) [Volume fraction] 44.0 % Normal 37.0-47.0 [facility] Comment on above: Performed By: #### 5 7021-8 ####[facility] Director - Myrnaregina BootheCLIA [id number] Hemoglobin (Bld) [Mass/Vol] 15.3 g/dL Normal 12.0-16.0 [facility] Comment on above: Performed By: #### 5 7021-8 ####[facility] Director - Myrnaregina BootheCLIA [id number] Immature granulocytes (Bld) [#/Vol] 0.05 10*3/uL Normal <=0.10 [facility] Comment on above: Performed By: #### 5 7021-8 ####[place] [address], [place] [address]Jobgwhs Director - Myrnaregina ShaikhIA [id number] Immature granulocytes/100 WBC (Bld) 0.60 % Normal <=1.50 [facility] Comment on above: Performed By: #### 5 7021-8 ####[place] [address] Director - Myrna Renee [id number] Lymphocytes (Bld) [#/Vol] 2.20 10*3/uL Normal 1.20-3.40 [facility] Comment on above: Performed By: #### 5 7021-8 ####[place] [address] Director - Myrna HawaIA [id number] Lymphocytes/100 WBC (Bld) 26.2 % Normal 20.0-40.0 [facility] Comment on above: Performed By: #### 5 7021-8 ####[facility] Director - Myrnaregina BootheCLIA [id number] MCH (RBC) [Entitic mass] 30.8 pg Normal 27.0-31.0 [facility] Comment on above: Performed By: #### 5 7021-8 ####[facility] Director - Myrnaregina Renee [id number] MCHC (RBC) [Mass/Vol] 34.8 g/dL Normal 32.0-36.0 [facility] Comment on above: Performed By: #### 5 7021-8 ####[facility] Director - Myrnaregina BootheCLIA [id number] MCV (RBC) [Entitic vol] 88.7 fL Normal 80.0-100.0 [facility] Comment on above: Performed By: #### 5 7021-8 ####[facility] Director - Myrna FarrellCLIA [id number] Monocytes (Bld) [#/Vol] 0.56 10*3/uL Normal 0.10-0.60 [facility] Comment on above: Performed By: #### 5 7021-8 ####[facility] Director - Myrna FarrellCLIA [id number] Monocytes/100 WBC (Bld) 6.7 % Normal <=8.0 [facility] Comment on above: Performed By: #### 5 7021-8 ####[facility] Director - Myrna FarrellCLIA [id number] Neutrophils (Bld) [#/Vol] 5.41 10*3/uL Normal 1.40-6.50 [facility] Comment on above: Performed By: #### 5 7021-8 ####[facility] Director - Myrna FarrellCLIA [id number] Neutrophils/100 WBC (Bld) 64.3 % Normal 50.0-70.0 [facility] Comment on above: Performed By: #### 5 7021-8 ####[facility] Director - Myrna FarrellCLIA [id number] Nucleated RBC (Bld) [#/Vol] 0.00 10*3/uL Normal <=0.10 [facility] Comment on above: Performed By: #### 5 7021-8 ####[facility] Director - Myrna FarrellCLIA [id number] Platelet mean volume (Bld) [Entitic vol] 11.1 fL Normal 9.0-13.0 [facility] Comment on above: Performed By: #### 5 7021-8 ####[facility] Director - Myrna Renee [id number] Platelets (Bld) [#/Vol] 265 10*3/uL Normal 130-400 [facility] Comment on above: Performed By: #### 5 7021-8 ####[facility] Director - Myrna Renee [id number] RBC (Bld) [#/Vol] 4.96 10*6/uL Normal 4.00-6.30 [facility] Comment on above: Performed By: #### 5 7021-8 ####[facility] Director - Myrna Renee [id number] WBC (Bld) [#/Vol] 8.40 10*3/uL Normal 4.80-10.80 [facility] Comment on above: Performed By: #### 5 7021-8 ####[facility] Director - Myrna Renee [id number] Comprehensive metabolic 2000 panelon 03-04-2024 Albumin [Mass/Vol] 3.6 g/dL Normal 3.4-5.0 [facility] Comment on above: Performed By: #### 2 4323-8, 42920-3 ####[facility] Director - Myrna Renee [id number] ALP [Catalytic activity/Vol] 80 U/L Normal 50-136 [facility] Comment on above: Performed By: #### 2 4323-8, 31680-3 ####[facility], [place] [address]Xwsdxww Director - Myrna Renee [id number] ALT [Catalytic activity/Vol] 17 U/L Normal 14-59 [facility] Comment on above: Performed By: #### 2 4323-8, 66480-8 ####[facility], [place] [address]Odtjddi Director - Myrna Renee [id number] Anion gap [Moles/Vol] 9.0 mmol/L Normal <=15.0 [facility] Comment on above: Performed By: #### 2 4323-8, 94943-2 ####[facility], [place] [address]Etrnyav Director - Myrna Renee [id number] AST [Catalytic activity/Vol] 15 U/L Normal 15-37 [facility] Comment on above: Performed By: #### 2 432-8, 91811-2 ####[facility], [place] [address]Xbdxxcz Director - Myrna Renee [id number] Bilirubin [Mass/Vol] 1.0 mg/dL Normal 0.2-1.0 [facility] Comment on above: Performed By: #### 2 432-8, 08959-7 ####[facility], [place] [address]Qvowkdo Director - Myrna Renee [id number] Calcium [Mass/Vol] 9.3 mg/dL Normal 8.5-10.1 [facility] Comment on above: Performed By: #### 2 4323-8, 83236-9 ####[facility], [place] [address]Hnjmlds Director - Myrna AriasrellCLAURELIA [id number] Chloride [Moles/Vol] 107 mmol/L Normal 98-107 [facility] Comment on above: Performed By: #### 2 4323-8, 85000-6 ####[facility], [place] [address]Hqbrukd Director - Myrna AriasrellCLAURELIA [id number] CO2 [Moles/Vol] 23 mmol/L Normal 21-32 [facility] Comment on above: Performed By: #### 2 432-8, 86563-9 ####[facility] Director - Myrna Renee [id number] Creatinine [Mass/Vol] 0.82 mg/dL Normal 0.51-0.95 [facility] Comment on above: Performed By: #### 2 4323-8, 34236-1 ####[facility] Director - Myrna BoothePORTER MEDICAL [facility] [id number] GFR/1.73 sq M.predicted MDRD (S/P/Bld) [Vol rate/Area] mL/min/{1.73_m2} Normal >=60 [facility] Comment on above: Performed By: #### 2 4323-8, 89754-7 ####[facility] Director - Myrna Renee [id number] Glucose [Mass/Vol] 77 mg/dL Normal 74-106 [facility] Comment on above: Performed By: #### 2 4323-8, 23229-7 ####[facility] Myrna Renee [id number] HGFR GLOMERULAR FILTRATIO N RATE INTERPRETATION~The eGFR is calculated using the MDRD equation.~This equation has been validated in patients with chronic kidney disease;~however, it underestimates the GFR in healthy patients with GFR's over 60 mL/min.~The equation is not valid in children under the age of 18.~NOTE: Criteria for Chronic Kidney Disease:~ ~1. Kidney damage for at least three months, as defined~by structural or functional abnormalities of the kidney,~with or without decreased glomerular filtration rate, manifested by either:~* Pathological abnormalities or~* Markers of Kidney damage, including abnormalities in~the composition of the blood or urine or abnormalities in imaging tests.~ ~2. GFR <60 mL/min/1.73 m squared for at least three months, with or without kidney damage.~ Normal [facility] Comment on above: Performed By: #### 2 4323-8, 18706-5 ####[facility] Director - Myrna Renee [id number] Potassium [Moles/Vol] 4.5 mmol/L Normal 3.5-5.1 [facility] Comment on above: Performed By: #### 2 4323-8, 76963-5 ####[facility] Director - Myrna Renee [id number] Protein [Mass/Vol] 6.6 g/dL Normal 6.4-8.2 [facility] Comment on above: Performed By: #### 2 4323-8, 61287-6 ####[facility] Director - Myrna Renee [id number] Sodium [Moles/Vol] 139 mmol/L Normal 136-145 [facility] Comment on above: Performed By: #### 2 4323-8, 26254-5 ####[facility] Director - Myrna Renee [id number] Urea nitrogen [Mass/Vol] 10 mg/dL Normal 7-17 [facility] Comment on above: Performed By: #### 2 4323-8, 27791-7 ####[facility] Director - Myrna Renee [id number] HbA1c Calc (Bld) [Mass fract ion]on 03-04-2024 Average glucose Estimated from glycated hemoglobin (Bld) [Mass/Vol] 100 mg/dL Normal 68-125 [facility] Comment on above: Performed By: #### 1 7855-8 ####[facility] Director - Myrna Renee [id number] HA1C A1C INTERPRETATION %A1c (NGSP) Interpretation 3.8 - 6.4 Non-Diabetic Range 5.7 - 6.4 Prediabetic >6.5 Action Suggested The eAG (estimated average glucose) is an estimation of one?s average blood glucose level, calculated based on A1C test results, reported using the same units (mg/dL) seen on blood glucose meters. Normal [facility] Comment on above: Performed By: #### 1 7855-8 ####[facility] Director - Myrna Renee [id number] HbA1c (Bld) [Mass fraction] 5.1 %A1C Normal 4.2-6.3 [facility] Comment on above: Performed By: #### 1 7855-8 ####[facility] Director - Myrna Renee [id number] Lipid panel with direct LDLo n 03-04-2024 Cholesterol [Mass/Vol] 216 mg/dL High <=200 [facility] Comment on above: Performed By: #### 2 4323-8, 51891-2 ####[facility], [place] [address]Rutreou Director - Myrna Renee [id number] Cholesterol in HDL [Mass/Vol] 46 mg/dL Normal 40-59 [facility] Comment on above: Performed By: #### 2 4323-8, 17284-2 ####[facility] Director - Myrna Renee [id number] Cholesterol in LDL [Mass/Vol] 143 mg/dL High 5-100 [facility] Comment on above: Performed By: #### 2 4323-8, 64439-4 ####[facility], [place] [address]Nmbttcj Director - Myrna Renee [id number] Cholesterol in LDL/Cholesterol in HDL [Mass ratio] 3.1 {ratio} Normal [facility] Comment on above: Performed By: #### 2 4323-8, 91479-1 ####[facility] Director - Myrna Renee [id number] Cholesterol.total/Cho lesterol in HDL [Mass ratio] 4.7 {ratio} Normal [facility] Comment on above: Performed By: #### 2 4323-8, 54388-2 ####[place] [address] Director - Myrna Renee [id number] HCHOL CHOLESTEROL INTERPRETATION Desirable <200 Borderline High 200-239 High >240 Normal [facility] Comment on above: Performed By: #### 2 4323-8, 13231-2 ####[place] [address] Director - Myrna Renee [id number] HLDL LDL INTERPRETATION Desirable <100 Near Optimal 100-129 Borderline High 130-159 High 160-190 Very High >190 Normal [facility] Comment on above: Performed By: #### 2 4323-8, 59732-1 ####[facility] - Myrna Renee [id number] HLIPID ATEROSCLEROSIS RISK FACTORS FOR LDL, HDL, AND CHOLESTEROL RISK FACTOR SEX LDL/HDL CHOL/HDL 1/2 Average M 1.00 3.43 F 1.47 3.27 Average M 3.55 4.97 F 3.22 4.44 2X Average M 6.25 9.55 F 5.03 7.05 3X Average M 7.99 23.39 F 6.14 11.04 Normal [facility] Comment on above: Performed By: #### 2 4323-8, 51686-3 ####[facility] Director - Myrna Renee [id number] HTRIG TRIGLYCERIDES INTERPRETATION Normal <150 Borderline High 150-199 High 200-499 Very High >500 Normal [facility] Comment on above: Performed By: #### 2 4323-8, 92569-2 ####[facility], [place] [address]Rtmfexl Director - Myrna Renee [id number] Triglyceride [Mass/Vol] 141 mg/dL Normal <=150 [facility] Comment on above: Performed By: #### 2 4323-8, 59376-1 ####[facility], [place] [address]Xfttayc Director - Myrna Renee [id number] MAMMOGRAM SCREENING BI INCL CAD W TOMOon 02-17-2024 MAMMOGRAM SCREENING BI INCL CAD W KIANA EXAM: BILATERAL DIGITAL SCREENING MAMMOGRAM WITH CAD AND TOMOSYNTHESIS INDICATION: Annual screening exam. COMPARISON: 2022, 2020, 2019 TECHNIQUE: Standard CC and MLO views of both breasts were obtained. Additionally, each breast was placed in CC and MLO compression with images obtained at multiple angles and reconstructed into high resolution slices. FINDINGS: There are scattered areas of fibroglandular density. No suspicious masses, calcifications or other abnormalities are identified in either breast. IMPRESSION: No findings suspicious for malignancy. BI-RADS 1 - Negative, no evidence of malignancy. Normal interval followup in 12 months. OVERALL ASSESSMENT- NEGATIVE A letter of notification will be sent to the patient regarding the results. Normal [facility] [employer] Cytology Reporton 2023 [employer] Operator Cytology Report . Pathology Reports Accession: Collected Date/Time: Received Date/Time: Pathologist: [id number] 01/23/2024 11:22 EDT 01/23/2024 18:00 EDT [employer] Cytology Report SPECIMEN: Specimen Description: Liquid Prep w/ HPV Specimen: Cervical Screening or Diagnostic: Screening RELEVANT HISTORY: LMP: 05/05/2017 [id number] SPECIMEN ADEQUACY: SATISFACTORY FOR EVALUATION Endocervical/Transfor mational zone component absent/insufficient INTERPRETATION/RESULT S: NEGATIVE FOR INTRAEPITHELIAL LESION OR MALIGNANCY HIGH RISK HPV TESTING: Event Code Result HPV Interp See Interp HPVN HPV Interp Text: High Risk HPV Typing: NEGATIVE HPV types 16, 18, 31, 33, 35, 39, 45, 51, 52, 56, 58, 59, 66 and 68 DNA were undetectable or below the pre-set threshold. The carole High-Risk HPV DNA Test is not intended for use as a screening device for Pap normal women under age 30 and is not intended to substitute for regular Pap screening. The carole High-Risk HPV DNA Test is designed to augment existing methods for the detection of cervical disease and should be used in conjunction with clinical information derived from other diagnostic and screening tests, physical examinations and full medical history in accordance with appropriate patient management procedures. NOTE: A negative result does not preclude the presence of HPV infection because results depend on adequate specimen collection, absence of inhibitors and sufficient DNA to be detected. As of: 01/28/24 16:09 EDT COMMENT: This Pap Test was successfully processed and evaluated with the assistance of the BlurttPrep Test Imaging System. Pathology Reports Accession: Collected Date/Time: Received Date/Time: Pathologist: [id number] 01/23/2024 11:22 EDT 01/23/2024 18:00 EDT Electronically Signed by Pathology report verified by [facility] Screened by: [place] Electronically signed by Isi BRAY (ASCP) Sign-Out Date: 01/28/2024 16:09 Performing Lab: [facility], [address] [place] [address] Pathology Dept Disclaimer The Pap test is a screening test for cervical cancer. As evidenced by published data, it is subject to both inherent false negative and false positive results. Your patient's results should be interpreted in context with pertinent clinical history including gynecological examination. Normal [facility] HPVon 01-27-2024 HPV Interp Normal See Interp HPVN [facility] Comment on above: Order Comment: Order placed by AP_HPV_ORDER rule from [id number] Result Comment: High Risk HPV Typing: NEGATIVE HPV types 16, 18, 31, 33, 35, 39, 45, 51, 52, 56, 58, 59, 66 and 68 DNA were undetectable or below the pre-set threshold. The carole High-Risk HPV DNA Test is not intended for use as a screening device for Pap normal women under age 30 and is not intended to substitute for regular Pap screening. The carole High-Risk HPV DNA Test is designed to augment existing methods for the detection of cervical disease and should be used in conjunction with clinical information derived from other diagnostic and screening tests, physical examinations and full medical history in accordance with appropriate patient management procedures. NOTE: A negative result does not preclude the presence of HPV infection because results depend on adequate specimen collection, absence of inhibitors and sufficient DNA to be detected. See Interp HPVN Performed By: #### H PV #### [place] [address] HPV Source Cervix Normal [facility] Comment on above: Order Comment: Order placed by AP_HPV_ORDER rule from [id number] Performed By: #### H PV #### [place] [address] SURG PATH REQUESTon 12-21-19 Addendum Normal [facility] Comment on above: Result Comment: The Helicobacter pylori immunostain is negative All controls show appropriate reactivity. All immunohistochemistry, in situ hybridization, and histochemical tests were developed by and are performed at the [facility], [address] [place] [address], [place] [address]. All tests reported here, except those addressing HER2 overexpression as a predictive marker, have not been cleared by or approved by the US Food and Drug Administration (FDA). The laboratory is regulated under CLIA as qualified to perform high-complexity testing. The tests are used for clinical purposes. They should not be regarded as investigational or for research. Addendum electronically signed by Myrna Bah DO on 12/25/2022 at 4:28 PM Performed By: #### S URGP #### [facility] (DEFAULT) [address] [place] [address] Case Report Normal [facility] Comment on above: Result Comment: Surg ical Pathology Report Case: [id number] Authorizing Provider: Oswaldo Juarez MD Collected: 12/20/2022 08:34 AM Ordering Location: Clinical Laboratories Received: 12/20/2022 12:08 PM Pathologist: Myrna Bah DO Specimens: A) - Stomach biopsy, ANTRUM BX B) - Esophagus biopsy, SCJ BX Performed By: #### S URGP #### [facility] (DEFAULT) [address] [place] [address] Clinical History GERD, antrum bx, SCJ bx. [facility] Comment on above: Performed By: #### S URGP #### [facility] (DEFAULT) [address] [place] [address] Gross Description [facility] Comment on above: Result Comment: The specimens are received in two properly labeled containers with the patient's name and accession number. A. The specimen is designated "antrum bx" and consists of two pieces of li-anna tissue that vary from 0.2 to 0.3 cm in maximum dimension. TE 1 ([id number] part A) B. The specimen is designated "SCJ bx" and consists of three pieces of li-anna tissue that vary from 0.2 to 0.3 cm in maximum dimension. TE 1 ([id number] part B) Lab Use Only: JobID [id number] Grosser for this case was: Reno Lopez MD For Immediate Release [facility] Yes Performed By: #### S URGP #### [facility] (DEFAULT) [address] [place] [address] Microscopic Description A microscopic examination was performed. [facility] Comment on above: Performed By: #### S URGP #### [facility] (DEFAULT) [address] [facility] Comment on above: Result Comment: Amarjit ventura, antrum, biopsy: Antral mucosa with mild chronic focal active inflammation with surface erosion and reactive changes (See note) Note: An immunostain for Helicobacter pylori organisms is in progress and the final report will be issued as an addendum B. Squamocolumnar junction, biopsy: Benign squamous epithelium with reactive changes Oxyntocardiac type mucosa with mild chronic inflammation, negative for goblet cells Performed By: #### S URGP #### [facility] ([facility]) [address] [place] [address] Final Surgical Pathology Rep lulu 10-16-2020 Final Surgical Pathology Report . Pathology Reports Accession: Collected Date/Time: Received Date/Time: Pathologist: [id number] 10/12/2020 09:02 EDT 10/13/2020 09:02 EDT DIEGO GILL MD Final Surgical Pathology Report DIAGNOSIS: GASTROESOPHAGEAL JUNCTION -- MARKED REFLUX ASSOCIATED CHANGES WITH FOCAL MUCOSAL ULCERATION. NO LEVINE'S. NO DYSPLASIA. COMMENT: [facility] - [id number] CLINICAL INFORMATION: GASTROESOPHAGEAL REFLUX DISEASE, ESOPHAGITIS NOT SPECIFIED Procedure: EGD SPECIMEN: A GE JUNCTION GROSS DESCRIPTION: A. Received in formalin, labeled with the patients name, Case #[id number], and "GE junction" are 4 anna tissue fragments ranging from 0.1 to 0.2 cm. TS -1. Dictated by [facility] MICROSCOPIC DESCRIPTION: Slides reviewed. Electronically Signed by Pathology Report verified by [facility] Electronically signed by DIEGO GILL Sign out Date: 10/16/2020 13:39 Performing Lab: [facility], [address] [place] [address] ([place]) Comment on above: Performed By: #### S PFR #### [place] [address] VitD, 1,25 Dihydroxyon 02-14 1,25 Dihydroxy VitD2 <4.0 Normal [facility] Comment on above: Performed By: #### 1 25VTD #### [facility] Chemistry [address] [place] [address] 1,25 Dihydroxy VitD3 48.6 pg/mL Normal [facility] Comment on above: Performed By: #### 1 25VTD #### [facility] [address] [place] [address] Vit D,1,25 DiOH Normal 15.0-60.0 [facility] Comment on above: Result Comment: 48.6 This test was developed and its performance characteristics determined by [facility] [place] ([facility]). It has not been cleared or approved by the FDA. [facility] is regulated under CLIA as qualified to perform high complexity testing. This test is used for clinical purposes. It should not be regarded as investigational or for research. Performed By: #### 1 25VTD #### [facility] [address] [place], [place] [address] Coronavirus 0 COVID 19 Result [employer] Normal Negative for COVID19 (SARS CoV2) by PCR. [facility] Comment on above: Result Comment: Nega tive for This test was developed and its performance characteristics determined by [facility] [place]. This test has been authorized by FDA under an Emergency Use Authorization (EUA). This test has been validated in accordance with the FDA's Guidance Document "Policy for Diagnostics Testing in Laboratories Certified to Perform High Complexity Testing under CLIA prior to Emergency use Authorization for Coronavirus Disease 2019 during the Public Health Emergency" issued on July 03, 2019. COVID19 (SARS This test was developed and its performance characteristics determined by [facility] [place]. This test has been authorized by FDA under an Emergency Use Authorization (EUA). This test has been validated in accordance with the FDA's Guidance Document "Policy for Diagnostics Testing in Laboratories Certified to Perform High Complexity Testing under CLIA prior to Emergency use Authorization for Coronavirus Disease 2019 during the Public Health Emergency" issued on July 03, 2019. CoV2) by PCR. This test was developed and its performance characteristics determined by [facility] [place]. This test has been authorized by FDA under an Emergency Use Authorization (EUA). This test has been validated in accordance with the FDA's Guidance Document "Policy for Diagnostics Testing in Laboratories Certified to Perform High Complexity Testing under CLIA prior to Emergency use Authorization for Coronavirus Disease 2019 during the Public Health Emergency" issued on July 03, 2019. Coronavirus 0 COVID 19 Source [employer] Normal [facility] Transferrinon 03-11-2019 Transferrin [Mass/Vol] 270 mg/dL Normal 200-360 [facility] Comment on above: Performed By: #### T RANPARVEEN #### [facility] Routine Lab [address] [place] [address] Encounters Encounter Date Encounter Type Care Provider Facility Start: 02-21-2025 ambulatory Day Krause NP Facility :[facility] Start: 11-09-2024 ambulatory SORENSEN DIEGO A C OX PAC~[id number] Facility:[facility] Start: 11-09-2024 End: 11-09-2024 Emergency department patient visit APARNA BRAUN DO~[id number] Facility:[facility] Start: 11-08-2024 End: 11-08-2024 ambulatory SORENSEN DIEGO A SORENSEN PAC~[id number] Facility:[facility] Start: 09-22-2024 End: 09-22-2024 ambulatory SORENSEN DIEGO A SORENSEN PAC~[id number] Facility:[facility] Start: 06-18-2024 End: 06-18-2024 ambulatory DIEGO A SORENSEN PAC Facility:[facility] Start: 06-18-2024 End: 06-18-2024 ambulatory DIEGO A SORENSEN PAC Facility:[facility] Start: 06-15-2024 Encounter for preprocedural laboratory examination SANKET COLES MD~[id number] [facility] Start: 06-10-2024 End: 06-10-2024 ambulatory SANKET COLES MD~[id number] Facility:[facility] Start: 06-02-2024 End: 06-02-2024 ambulatory DIEGO A SORENSEN PAC Facility:[facility] Start: 05-26-2024 End: 05-26-2024 ambulatory DIEGO A SORENSEN PAC Facility:[facility] Start: 04-21-2024 End: 04-21-2024 ambulatory DIEGO A SORENSEN PAC Facility:[facility] Start: 04-16-2024 End: 04-16-2024 Emergency department patient visit YONNY ROACH MD Facility:[facility] Start: 03-05-2024 Encounter for genera l adult medical examination without abnormal findings DAY KRAUSE [facility] Start: 03-04-2024 End: 03-04-2024 ambulatory DAY KRAUSE Facility:[facility] Start: 02-13-2024 End: 02-13-2024 ambulatory WALLY DIANE MD Facility:[facility] Start: 01-23-2024 End: 01-23-2024 ambulatory DAY KRAUSE [facility] Start: 01-23-2024 Encounter for gynecological examination (general) (routine) without abnormal findings DAY KRAUSE [facility] Start: 02-19-2023 End: 02-19-2023 ambulatory RADHA MAY [facility] Payers Date Payer Category Payer Private Health Insurance [id number] 2025 Self-pay 2025 Unknown [id number] 2021 Unknown [id number] 1979 Unknown [id number] 2.16.8 [id number] 1979 Unknown [id number] 2.16.8 40.1.071683.3.579.2.651 1979 Unknown [id number] 2.16.8 40.1.143010.3.579.2.419 1979 Unknown [id number] 2.16.8 40.1.088864.3.579.2.419 1979 Unknown [id number] 2.16.8 40.1.059072.3.579.2.419 1979 Unknown [id number] 2.16.8 40.1.598330.3.579.2.419 1979 Unknown [id number] 2.16.8 40.1.929853.3.579.2.419 1979 Unknown [id number] 2.16.8 40.1.813726.3.579.2.419 1979 Unknown [id number] 2.16.8 40.1.075810.3.579.2.419 1979 Unknown [id number] 2.16.8 40.1.741189.3.579.2.419 1979 Unknown [id number] 2.16.8 40.1.923835.3.579.2.419 1979 Unknown [id number] 2.16.8 40.1.127994.3.579.2.419 1979 Unknown [id number] 2.16.8 40.1.361852.3.579.2.419 1979 Unknown [id number] 2.16.8 40.1.369643.3.579.2.419 1979 Unknown [id number] 2.16.8 40.1.672309.3.579.2.419 Unknown [id number] Unknown [id number] 2.16.8 40.1.251670.3.579.2.462 Clinical Note 06-19-2024 Note Date & Type Note Facility 06-19-2024 Note PROCEDURE: ULTRASOUN D RENAL, 06/18/2024 9:01 AM EST INDICATIONS: Ureteric stone. COMPARISON: CT abdomen and pelvis 06/02/2024. TECHNIQUE: Bilateral renal and bladder sonogram with color-flow assessment. FINDINGS: Right kidney: 11.0 x 5.2 x 5.7 cm. Left kidney: 11.3 x 4.8 x 5.4 cm. Right renal cortex 1.3, left 1.5 cm. Intact renal vascularity is seen with normal resistive indices. There is no hydronephrosis or obstructive uropathy. There is a nonspecific relative echogenic zone within the upper pole right kidney without abnormal vascularity, mass effect or posterior features. Artifact versus focal area of edema as can be seen with acute pyelonephritis are considerations. No abscess is evident. Space-occupying lesion is not evident. No nephrolithiasis. Urinary bladder is incompletely distended. Ureteral jets are identified bilaterally. IMPRESSION: 1. No hydronephrosis or obstructive uropathy. 2. Nonspecific echogenic renal parenchyma upper pole right kidney without associated mass effect, vascularity or posterior features. Artifact versus acute pyelonephritis are considered in the appropriate clinical setting. 3. No nephrolithiasis. 4. Incomplete urinary bladder distention. [facility] Summary Purpose Family History No Family History Records FoundNo Family History Records FoundNo Family History Records FoundNo Family History Records FoundNo Family History Records FoundNo Family History Records FoundNo Family History Records Found Advance Directives No Advanced Directives Records FoundNo Advanced Directives Records FoundNo Advanced Directives Records FoundNo Advanced Directives Records FoundNo Advanced Directives Records FoundNo Advanced Directives Records FoundNo Advanced Directives Records Found Additional Source Comments INFORMATION SOURCE (unrecogn ized section and content) DATE CREATED AUTHOR 02/16/2020 [facility] DATE CREATED AUTHOR AUTHOR'S ORGANIZ ATION 10/17/2020 [facility] ([place]) DATE CREATED AUTHOR AUTHOR'S ORGANIZ ATION 12/27/2022 [facility] DATE CREATED AUTHOR AUTHOR'S ORGANIZ ATION 01/26/2024 [facility] DATE CREATED AUTHOR AUTHOR'S ORGANIZ ATION 01/29/2024 [facility] DATE CREATED AUTHOR AUTHOR'S ORGANIZ ATION 11/12/2024 [facility] DATE CREATED AUTHOR AUTHOR'S ORGANIZ ATION 02/10/2025 [facility] FOR RECORDS PERTAINING TO PATIENTS WHO ARE OR HAVE BEEN ENROLLED IN A CHEMICAL DEPENDENCY/SUBSTANCEABUSE PROGRAM, SOME INFORMATION MAY BE OMITTED. This clinical summary was aggregated from multiple sources. Caution should be exercised in using it in the provision of clinical care. This summary normalizes information from multiple sources, and as a consequence, information in this document may materially change the coding, format and clinical context of patient data. In addition, data may be omitted in some cases. CLINICAL DECISIONS SHOULD BE BASED ON THE PRIMARY CLINICAL RECORDS. [facility] [employer] provides no warranty or guarantee of the accuracy or completeness of information in this document.
== END | disposition home or self-care (01) ==
LOC: OPBI 14:22
PROVIDERS: PCP Nurse Practitioner Family; Referring Provider Nurse Practitioner Family; Visit Provider Nurse Practitioner Family
DX: Z12.31 Encounter for screening mammogram for malignant neoplasm of breast (principal)
CPT/HCPCS: 77063; 77067